=== PATIENT | female | born 1945 | race Caucasian/White ===

== ENCOUNTER 2025-03-17 14:46 | Outpatient (OUT) | payer MEDICARE, OTHER, SELFPAY ==
--- NOTE | 2025-03-17 14:51 | MM_ITS ---
Patient Name: MARNIE PEREIRA MR#: [id number] : 1945 Exam Date: 03/17/2025 Ordering Doctor: DR BHASKAR ABERNATHY RADIOLOGY REPORT PROCEDURE: MM TOMOSYNTHESIS SCREENING BI COMPARISON: MM TOMOSYNTHESIS SCREENING BI, 01/01/2024. MG MAMM DIAGNOSTIC 3D PATRIZIA CAD, 12/03/2022. INDICATIONS: Screening Calculator Name NCI Breast Cancer Risk Assessment Tool 5 Year Breast Cancer Risk 2.20% Lifetime Breast Cancer Risk 3.70% Personal Breast Cancer No Personal Ovarian Cancer No Treatments None Family Cancers Cousin-maternal with breast cancer at age 87. LOCATION: [facility] BREAST COMPOSITION: The breasts are almost entirely fatty. FINDINGS: DIAGNOSTIC CATEGORY 1--NEGATIVE. RIGHT BREAST: No significant suspicious finding. LEFT BREAST: No significant suspicious finding. RECOMMENDATIONS: ROUTINE MAMMOGRAM AND CLINICAL EVALUATION IN 12 MONTHS. Dictated by: Nathaniel Cooper DO on 03/17/2025 at 16:35 Approved by: Nathaniel Cooper DO on 03/17/2025 at 16:37
== END 2025-03-17 14:47 | disposition home or self-care (01) ==
LOC: MAMMO 14:47
PROVIDERS: PCP Internal Medicine; Visit Provider Internal Medicine
DX: Z12.31 Encounter for screening mammogram for malignant neoplasm of breast (principal); Z80.3 Family history of malignant neoplasm of breast
CPT/HCPCS: 77063; 77067